=== PATIENT | male | born 2000 | race Caucasian/White ===

== ENCOUNTER 2024-03-10 12:45 | Emergency (ER) | payer SELFPAY ==
[2024-03-10 13:06] VITALS: BP 114/67; PULSE 95; RESP 18; TEMP 36.6; O2SAT 98; BMI 25.8
--- NOTE | 2024-03-10 13:20 | W.ED.PSYCHS ---
HPI - Psych General: Chief Complaint: Psychiatric Symptoms Stated Complaint: MHE Time Seen by Provider: 03/10/24 13:04 Source: patient Mode of arrival: ambulatory Limitations: no limitations History of Present Illness: Patient is a 23-year-old male who presents to ED today requesting a psychiatric evaluation. Patient states he has suffered from what he believes is mental health issues for several years. He states his mood is often up-and-down . He feels like he sleeps less than normal. He is reporting suicidal ideation since the age of 12. He feels like these chronically wax and wane. He has never acted on these previously. He has no current plan or intent to harm himself. Patient is adamant he does not want to be admitted to [facility]. He states he has a 2-year-old at home and does not want to be away from his and child. Patient has never been on any form of medication for mental health issues. He states he did attend one counseling session. MD complaint: other (requesting mental health evaluation) Onset (ago): year(s) Duration: constant History of same: Yes Relieving factors: none Exacerbating factors: none Associated symptoms: Reports suicidal ideation (chronic); Deny auditory hallucinations, visual hallucinations, depression or homicidal ideation Treatments prior to arrival: none Review of Systems Const: Denies: fever(s) or chills Card: Denies: chest pain, palpitations, lightheadedness or syncope Resp: Denies: dyspnea GI: Denies: abdominal pain, nausea, vomiting or diarrhea Skin/Breast: Denies: rash Neuro: Denies: headache(s) Psych: Reports: mood swings, sleeping less and suicidal ideation (chronic); Denies: anxiety, depression, panic attacks, sleeping more, paranoia, memory loss, visual hallucinations, auditory hallucinations or homicidal ideation Physical Exam Const: COMMON NORMALS: no acute distress, patient oriented x3, alert and well nourished GENERAL APPEARANCE: cooperative and well kempt Resp: COMMON NORMALS: normal respiratory effort and clear to auscultation bilaterally AUSCULTATION: clear to auscultation bilaterally Cardio: COMMON NORMALS: regular rate and regular rhythm RATE: regular rate RHYTHM: regular rhythm Neuro: COMMON NORMALS: patient oriented x3 SENSORIUM/ORIENTATION: Yes alert Psych: COMMON NORMALS: mental status grossly normal, Normal thought process present, cooperative, normal affect, speech normal, activity/motor behavior normal, denies hallucinations and denies homicidal ideation APPEARANCE: Yes grossly normal and Yes well kempt ATTITUDE: Yes calm ACTIVITY/MOTOR BEHAVIOR: Yes appropriate eye contact and No psychomotor agitation SPEECH: Yes normal speech MOOD & AFFECT: Yes euthymic mood THOUGHT PROCESS: Normal thought process present THOUGHT CONTENT: Yes Normal thought content present ATTENTION/CONCENTRATION: Yes attention grossly intact and Yes concentration grossly intact MEMORY/COGNITION: Yes memory grossly intact and Yes cognition grossly intact INSIGHT: Good insight present (Psych) JUDGEMENT: Good judgement present (Psych) Course Consultations: Consultation #1: Dr. Mcclellan-recommends patient go to the crisis stabilization center to be set up with services through there Vital Signs: Vital signs: Vital Signs Temperature 98 F 03/10/24 13:06 Pulse Rate 95 03/10/24 13:06 Respiratory Rate 18 03/10/24 13:06 Blood Pressure 114/67 03/10/24 13:06 Pulse Oximetry 98 03/10/24 13:06 Oxygen Delivery Me thod Room Air 03/10/24 13:06 [facility] - Psych Medical Decision Making Patient is a 23-year-old male presenting to the emergency department today wanting an acute psychiatric evaluation through the emergency department. Patient states he has had waxing and waning moods. He reports chronic suicidal ideations ever since the age of 12. He has never acted on any of these thoughts. He has no specific plan or intent to harm himself. No previous high risk behaviors. Patient states he feels safe going home. Patient is adamant he does not want to be admitted to [facility] for evaluation as he would like to go home with his and 2-year-old. I spoke to psychiatrist on-call, Dr. Mcclellan, who is recommending patient go to the crisis stabilization center and have him get set up with services/and evaluation through them. Medical Records I reviewed the patient's medical records. Lab Data I reviewed the patient's lab results. 03/10/24 13:48 03/10/24 13:48 Laboratory Results WBC 7.98 10^3/uL (3.29-11.43) 03/10/24 13:48 RBC 5.42 10^6/uL (3.85-5.65) 03/10/24 13:48 Hgb 16.00 g/dL (11.27-16.99) 03/10/24 13:48 Hct 45.6 % (37-53) 03/10/24 13:48 MCV 84.1 fl (82-101) 03/10/24 13:48 MCH 29.5 pg (27-33) 03/10/24 13:48 MCHC 35.1 g/dL (30-55) 03/10/24 13:48 RDW 12.8 % (12.1-15.1) 03/10/24 13:48 Plt Count 244 10^3/cmm (157-399) 03/10/24 13:48 MPV 10.1 fL (7.4-10.4) 03/10/24 13:48 Neut % (Auto) 61.9 % 03/10/24 13:48 Lymph % (Auto) 31.2 % 03/10/24 13:48 [place] % (Auto) 5.0 % 03/10/24 13:48 Eos % (Auto) 1.0 % 03/10/24 13:48 Baso % (Auto) 0.8 % 03/10/24 13:48 Neut # (Auto) 4.94 10^3/uL (1.8-7.7) 03/10/24 13:48 Lymph # (Auto) 2.5 10^3/uL (0.8-4.8) 03/10/24 13:48 [place] # (Auto) 0.4 10^3/uL (0.2-0.9) 03/10/24 13:48 Eos # (Auto) 0.1 10^3/uL (0.0-0.8) 03/10/24 13:48 Baso # (Auto) 0.1 10^3/uL (0.0-0.1) 03/10/24 13:48 Nucleated RBC % (auto) 0 % 03/10/24 13:48 Nucleated RBCs # 0.0 /100WBC 03/10/24 13:48 Sodium 139 mmol/L (136-145) 03/10/24 13:48 Chloride 101 mmol/L (98-107) 03/10/24 13:48 Carbon Dioxide 26 mmol/L (22-29) 03/10/24 13:48 Creatinine 1.1 mg/dL (0.7-1.2) 03/10/24 13:48 Glucose 91 mg/dL (65-115) 03/10/24 13:48 Calculated Osmolality 292 mOsm/kg (285-295) 03/10/24 13:48 Calcium 9.6 mg/dL (8.5-10.5) 03/10/24 13:48 Total Bilirubin 0.3 mg/dL (0.15-1.2) 03/10/24 13:48 AST 18 U/L (0-40) 03/10/24 13:48 ALT 14 U/L (0-41) 03/10/24 13:48 Total Protein 7.6 g/dL (6.6-8.7) 03/10/24 13:48 Albumin 4.5 g/dL (3.5-5.2) 03/10/24 13:48 Globulin 3.1 g/dL (1.3-4.6) 03/10/24 13:48 Urine Opiates Screen Negative ng/mL (Negative) 03/10/24 13:50 Ur Barbiturates Screen Negative ng/mL (Negative) 03/10/24 13:50 Ur Phencyclidine Scrn Negative ng/mL (Negative) 03/10/24 13:50 Ur Amphetamines Screen Negative ng/mL (Negative) 03/10/24 13:50 U Benzodiazepines Scrn Negative ng/mL (Negative) 03/10/24 13:50 Urine Cocaine Screen Negative ng/mL (Negative) 03/10/24 13:50 U Marijuana (THC) Screen Positive ng/mL (Negative) H 03/10/24 13:50 No radiology studies performed this visit Discharge Plan Discharge Patient Disposition: Home Clinical Impression: Encounter for psychiatric assessment Condition: Stable Prescriptions: No Action No Known Home Medications Discharge Orders: Discharge ED (Routine); Ordered 03/10/24 Ordered By: Anita Kenney Activity Restrictions/Additional Instructions: As we discussed her psychiatrist is recommending you go to [facility]. This is located at [address] [place] [address]. Their phone number is [phone]. Coding Level of Care Code ED Enterprise Infrastructure [employer] for Sixto Mckinney
[2024-03-10 14:03] LABS: Basophils # 0.1 10^3/uL (0.0-0.1); Basophils % 0.8 %; Eosinophils # 0.1 10^3/uL (0.0-0.8); Hematocrit 45.6 % (37-53); Lymphocytes # 2.5 10^3/uL (0.8-4.8); Lymphocytes % 31.2 %; Mean Corpuscular HGB Conc 35.1 g/dL (30-55); Mean Corpuscular Hemoglobin 29.5 pg (27-33); Mean Corpuscular Volume 84.1 fl (82-101); Mean Platelet Volume 10.1 fL (7.4-10.4); Monocytes # 0.4 10^3/uL (0.2-0.9); Neutrophils # 4.94 10^3/uL (1.8-7.7); Neutrophils % 61.9 %; Nucleated Red Blood Cells % 0 %; Platelet Count 244 10^3/cmm (157-399); Red Blood Count 5.42 10^6/uL (3.85-5.65); Red Cell Distribution Width 12.8 % (12.1-15.1); White Blood Count 7.98 10^3/uL (3.29-11.43)
[2024-03-10 14:05] LABS: Amphetamines Screen Urine Negative (Negative); Barbiturates Screen Urine Negative (Negative); Benzodiazepines Screen Urine Negative (Negative); Cocaine Screen Urine Negative (Negative); Opiate Screen Urine Negative (Negative); PCP Screen Urine Negative (Negative); THC Screen Urine Positive (Negative)
[2024-03-10 14:19] LABS: Alanine Aminotransferase 14 U/L (0-41); Albumin Level 4.5 g/dL (3.5-5.2); Alkaline Phosphatase 180 U/L (40-130); Aspartate Amino Transferase 18 U/L (0-40); Blood Urea Nitrogen 24 mg/dL (6-20); Calcium 9.6 mg/dL (8.5-10.5); Carbon Dioxide 26 mmol/L (22-29); Chloride 101 mmol/L (98-107); Creatinine Clr Calc Pharmacy 99.4352; Globulin 3.1 g/dL (1.3-4.6); Glucose 91 mg/dL (65-115); Osmolality Calculated 292 mOsm/kg (285-295); Sodium 139 mmol/L (136-145); Total Bilirubin 0.3 mg/dL (0.15-1.2); Total Protein 7.6 g/dL (6.6-8.7)
[2024-03-10 14:25] LABS: Acetaminophen < 5.0 ug/mL (10-30); Alcohol Level < 10 mg/dL (0-10); Anion Gap 16.4 (5-19); Potassium 4.4 mmol/L (3.5-5.1); Salicylate < 0.3 mg/dL (3-10)
== END 2024-03-10 14:46 | disposition home or self-care (01) ==
PROVIDERS: Emergency Provider Physician Assistant
DX: Z00.8 Encounter for other general examination (principal)
CPT/HCPCS: 36415; 80053; 80306; 80307; 85025; 99283